=== PATIENT | male | born 1980 | race Hispanic/Latino ===

== ENCOUNTER 2016-11-03 05:43 | Observation (INO) | payer SELFPAY ==
--- NOTE | 2016-11-03 08:17 | C.PDOC ---
History Of Present Illness 35-year-old male, presents to the emergency department for alcohol intoxication. Patient w/ no complaints at this time. All other Hx limited due to intoxication. No obvious signs of trauma Time Seen by Provider: 11/03/16 07:12 Chief Complaint (Nursing): Substance Abuse History Per: EMS History/Exam Limitations: clinical condition Past Medical History Reviewed: Historical Data, Nursing Documentation, Vital Signs Vital Signs: Last Vital Signs Temp 97.4 F L 11/03/16 12:05 Pulse 109 H 11/03/16 12:05 Resp 20 11/03/16 12:05 BP 116/76 11/03/16 12:05 Pulse Ox 93 L 11/03/16 12:48 Family History: States: Unknown Family Hx - Social History Hx Alcohol Use: Yes Hx Substance Use: No - Immunization History Hx Tetanus Toxoid Vaccination: Yes Hx Influenza Vaccination: Yes Hx Pneumococcal Vaccination: No Review Of Systems Review Of Systems: ROS cannot be obtained secondary to pt's inabilty to answer questions. Respiratory: Negative for: Shortness of Breath Gastrointestinal: Negative for: Vomiting Psych: Negative for: Suicidal ideation Physical Exam - Physical Exam Appears: Non-toxic, No Acute Distress Skin: Warm, Dry, No Rash Head: Atraumatic, Normacephalic, No Swelling, No Abrasion, No Laceration Eye(s): bilateral: Normal Inspection, PERRL, EOMI Nose: Normal Oral Mucosa: Moist Lips: Normal Appearing Neck: Normal ROM Chest: Symmetrical Cardiovascular: Rhythm Regular Respiratory: Normal Breath Sounds, No Accessory Muscle Use, No Wheezing Extremity: Bilateral: Atraumatic, Normal Color And Temperature, Normal ROM Neurological/Psych: Other (intoxicated, drowsy) ED Course And Treatment O2 Sat by Pulse Oximetry: 93 Medical Decision Making Medical Decision Making: Patient is intoxicated, alcohol on breath. no signs of obvious trauma. Accucheck obtained. plan is to observe until sober for discharge ED OBSERVATION Discharge: Yes Date of observation admission: 11/03/16 Time of observation admission: 07:02 - Observation admission statement Patient is being placed in observation because:: Alcohol intoxication - Goals of Observation Goals of observation are:: sobriety - Progress Note Progress Note: 11/03/16 09:13 Patient sleeping, arousable 11/03/16 11:30 Patient is sleeping 11/03/16 12:41 Patient is ambulating with steady gait and asking for discharge. Disposition Counseled Patient/Family Regarding: Need For Followup - Disposition Disposition: HOME/ ROUTINE Disposition Time: 12:48 Condition: STABLE - POA Present On Arrival: None - Clinical Impression Clinical Impression: Alcohol intoxication - Scribe Statement The provider has reviewed the documentation as recorded by the Zohaibibe Shimon Weber All medical record entries made by the Zohaibibjalyn were at my direction and personally dictated by me. I have reviewed the chart and agree that the record accurately reflects my personal performance of the history, physical exam, medical decision making, and the department course for this patient. I have also personally directed, reviewed, and agree with the discharge instructions and disposition.
[2016-11-03 12:06] VITALS: BP 116/76; PULSE 109; RESP 20; TEMP 97.4
[2016-11-03 12:48] VITALS: O2SAT 93
== END 2016-11-03 12:48 | disposition home or self-care (01) ==
LOC: C.ER 05:43 → C.9OBSV 07:02
PROVIDERS: ADMIT Emergency Medicine; ATTEND Emergency Medicine
DX: F10.129 Alcohol abuse with intoxication, unspecified (principal)
CPT/HCPCS: 82948; 99284; G0378